=== PATIENT | male | born 1950 | race Caucasian/White ===

== ENCOUNTER → 2018-03-12 | Outpatient (CLI) | payer MEDICARE, BC ==
--- NOTE | 2018-03-15 09:16 | MR ---
EXAMINATION TYPE: MR angio head wo/w con DATE OF EXAM: 03/12/2018 COMPARISON: Brain MRI 11/01/2016, CT brain 04/11/2012, prior MRA is not available HISTORY: Follow up on cerebral aneurysm TECHNIQUE: Time of flight images focusing on the [place] of [place] were performed utilizing 9 mL intra venous Gadavist gadolinium contrast. Three-dimensional reconstructions were performed. FINDINGS: At the level of the patient's previous aneurysm coiling in the paraclinoid left internal ca rotid artery, there is artifact due to patient's procedure. Signal is decreased within the internal c arotid artery at this level. There is suggestion of signal present at the level of the aneurysm which may represent blood flow, incomplete thrombosis. The right internal carotid artery is patent. Vertebrobasilar system is patent. The internal carotid a rtery is patent distal to the aneurysm coiling on the left. No additional aneurysm or embolus, no vickie dent dissection. 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 No hydrocephalus. 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
== END ==
LOC: RADMRIMAIN 13:46
PROVIDERS: ATTEND Neurological Surgery
DX: I67.1 Cerebral aneurysm, nonruptured (principal)
CPT/HCPCS: 82565; 70546; 36415; A9585